=== PATIENT | female | born 1985 | race Caucasian/White ===

== ENCOUNTER 2017-11-28 08:49 | Day surgery (SDC) | payer OTHER ==
[2017-11-28] MEDS ORDERED: LIDOCAINE 1% (MDV) 20 ML INJ (11:05)
[2017-11-28] MEDS ORDERED: HEPARIN 1000 UNITS/NS (A-LINE) 1,000 ML (11:05)
[2017-11-28] MEDS ORDERED: MIDAZOLAM 1 MG/ML 2 ML INJ (11:05)
[2017-11-28] MEDS ORDERED: IODIXANOL LOCM 50 ML BTL (11:06)
[2017-11-28] MEDS ORDERED: FENTAnyl 50 MCG/ML VIAL (11:06)
[2017-11-28] MEDS ORDERED: IOHEXOL 350MG/ML 50 ML BTL (11:49)
[2017-11-28] MEDS ORDERED: ACETAMINOPHEN 325 MG TAB PO (13:00)
[2017-11-28 13:47] LABS: ALANINE AMINOTRANSFERASE 21 IU/L (13-69); ALBUMIN 4.9 g/dl (3.3-4.9); ALBUMIN/GLOBULIN RATIO 1.48; ALKALINE PHOSPHATASE 136 IU/L (42-121); ANION GAP 24 (8-16); ASPARTATE AMINO TRANSFERASE 19 IU/L (15-46); BILIRUBIN,INDIRECT 0.3 mg/dl (0-1.1); BILIRUBIN,TOTAL 0.3 mg/dl (0.2-1.3); CARBON DIOXIDE 26 mmol/L (21-31); CHLORIDE 96 mmol/L (97-110); GLUCOSE 102 mg/dl (70-220); SODIUM 139 mmol/L (135-144); TOTAL PROTEIN 8.2 g/dl (6.1-8.1)
[2017-11-28 13:49] LABS: BLOOD UREA NITROGEN 57 mg/dl (7-20); CALCIUM 9.6 mg/dl (8.4-10.2); CREATININE 10.42 mg/dl (0.44-1.00); POTASSIUM 7.1 mmol/L (3.5-5.1)
== END 2017-12-01 17:12 | disposition home or self-care (01) ==
LOC: SDS 12-01 17:12
DX: N18.6 End stage renal disease (principal); T82.898A Other specified complication of vascular prosthetic devices, implants and grafts, initial encounter; I87.1 Compression of vein; Y83.2 Surgical operation with anastomosis, bypass or graft as the cause of abnormal reaction of the patient, or of later complication, without mention of misadventure at the time of the procedure
CPT/HCPCS: 37248; 76937; 80053; 82962; 84703

== ENCOUNTER 2017-11-28 14:25 | Emergency (ER) | payer OTHER ==
[2017-11-28 16:21] LABS: ANION GAP 25 (8-16); BLOOD UREA NITROGEN 60 mg/dl (7-20); CALCIUM 9.1 mg/dl (8.4-10.2); CARBON DIOXIDE 24 mmol/L (21-31); CHLORIDE 96 mmol/L (97-110); GLUCOSE 155 mg/dl (70-220); POTASSIUM 5.2 mmol/L (3.5-5.1); SODIUM 140 mmol/L (135-144)
[2017-11-28 16:35] LABS: CREATININE 10.54 mg/dl (0.44-1.00)
== END 2017-11-28 18:26 | disposition home or self-care (01) ==
LOC: E/R 14:25
DX: E87.5 Hyperkalemia (principal); N18.6 End stage renal disease; E11.9 Type 2 diabetes mellitus without complications; Z99.2 Dependence on renal dialysis; Z79.4 Long term (current) use of insulin
CPT/HCPCS: 80048; 99283

== ENCOUNTER 2018-05-29 06:54 | Day surgery (SDC) | payer OTHER ==
[2018-05-29 08:21] LABS: POTASSIUM 4.5 mmol/L (3.5-5.1)
[2018-05-29] MEDS: DEXTROSE 50% 50 ML SYRINGE IV (09:33)
[2018-05-29] MEDS ORDERED: MIDAZOLAM 1 MG/ML 2 ML INJ (10:00)
[2018-05-29] MEDS ORDERED: FENTAnyl 50 MCG/ML VIAL (10:01)
[2018-05-29] MEDS ORDERED: LIDOCAINE 1% (MDV) 20 ML INJ (10:38)
[2018-05-29] MEDS ORDERED: IODIXANOL LOCM 50 ML BTL (10:38)
[2018-05-29] MEDS ORDERED: HEPARIN 1000 UNITS/NS (A-LINE) 1,000 ML (10:38)
[2018-05-29] MEDS ORDERED: ACETAMINOPHEN 325 MG TAB PO (11:00)
== END 2018-05-29 12:47 | disposition home or self-care (01) ==
LOC: SDS 06:54
DX: I12.0 Hypertensive chronic kidney disease with stage 5 chronic kidney disease or end stage renal disease (principal); N18.6 End stage renal disease; E11.9 Type 2 diabetes mellitus without complications
CPT/HCPCS: 36901; 36907; 82962; 84132; 84703

== ENCOUNTER 2018-08-09 11:02 | Inpatient (IN) | payer OTHER ==
[2018-08-09 12:23] LABS: ADD MAN DIFF? NO
[2018-08-09 12:27] LABS: BASOPHILS % 0.4 % (0.0-2.0); EOSINOPHILS # 0.1 10^3/ul (0.0-0.5); EOSINOPHILS % 1.4 % (0.0-7.0); HEMATOCRIT 34.6 % (37.0-47.0); LYMPHOCYTES # 0.8 10^3/ul (0.8-2.9); LYMPHOCYTES % 13.7 % (15.0-51.0); MEAN CORPUSCULAR HEMOGLOBIN 32.3 pg (29.0-33.0); MEAN CORPUSCULAR HGB CONC 31.8 g/dl (32.0-37.0); MEAN CORPUSCULAR VOLUME 101.5 fl (82.0-101.0); MEAN PLATELET VOLUME 11.6 fl (7.4-10.4); MONOCYTE # 0.4 10^3/ul (0.3-0.9); MONOCYTES % 6.7 % (0.0-11.0); NEUTROPHIL # 4.4 10^3/ul (1.6-7.5); NEUTROPHILS % 77.4 % (39.0-77.0); PLATELET COUNT 165 10^3/UL (140-415); RED BLOOD COUNT 3.41 10^6/ul (4.20-5.40)
[2018-08-09 12:27] LABS: WHITE BLOOD COUNT 5.7 10^3/ul (4.8-10.8)
[2018-08-09 12:44] LABS: ALANINE AMINOTRANSFERASE 8 IU/L (13-69); ALBUMIN 4.5 g/dl (3.3-4.9); ALKALINE PHOSPHATASE 105 IU/L (42-121); ANION GAP 18 (5-13); ASPARTATE AMINO TRANSFERASE 17 IU/L (15-46); BILIRUBIN,INDIRECT 0.2 mg/dl (0-1.1); BILIRUBIN,TOTAL 0.2 mg/dl (0.2-1.3); BLOOD UREA NITROGEN 44 mg/dl (7-20); CARBON DIOXIDE 24 mmol/L (21-31); CHLORIDE 100 mmol/L (97-110); CREATININE 9.23 mg/dl (0.44-1.00); Estimated GFR 5 mL/min (>60); GLUCOSE 213 mg/dl (70-220); LIPASE 146 U/L (23-300); POTASSIUM 4.9 mmol/L (3.5-5.1); SODIUM 142 mmol/L (135-144); TOTAL PROTEIN 7.7 g/dl (6.1-8.1)
[2018-08-09 12:45] LABS: INR 0.97
[2018-08-09] MEDS: hydrALAzine 20 MG INJ IV (13:02)
[2018-08-09] MEDS: LIDOCAINE 2% (MDV) 20 ML INJ INJ (13:30)
[2018-08-09] MEDS ORDERED: NITROGLYCERIN AEROSOL (4.9 GM) (14:22)
[2018-08-09] MEDS ORDERED: LIDOCAINE 2% (MDV) 20 ML INJ ×2 (14:22→15:16)
[2018-08-09] MEDS ORDERED: hydrALAzine 20 MG INJ (14:28)
[2018-08-09] MEDS ORDERED: HEPARIN 1000 UNITS/ML 10 ML INJ (15:20)
[2018-08-09 17:15] LABS: ADD MAN DIFF? NO
[2018-08-09 17:17] LABS: WHITE BLOOD COUNT 6.6 10^3/ul (4.8-10.8)
[2018-08-09 17:17] LABS: BASOPHILS % 0.3 % (0.0-2.0); EOSINOPHILS # 0.1 10^3/ul (0.0-0.5); EOSINOPHILS % 1.4 % (0.0-7.0); HEMATOCRIT 28.1 % (37.0-47.0); HEMOGLOBIN 9.1 g/dl (12.0-16.0); LYMPHOCYTES # 1.1 10^3/ul (0.8-2.9); LYMPHOCYTES % 17.1 % (15.0-51.0); MEAN CORPUSCULAR HEMOGLOBIN 32.7 pg (29.0-33.0); MEAN CORPUSCULAR HGB CONC 32.4 g/dl (32.0-37.0); MEAN CORPUSCULAR VOLUME 101.1 fl (82.0-101.0); MEAN PLATELET VOLUME 11.8 fl (7.4-10.4); MONOCYTE # 0.5 10^3/ul (0.3-0.9); MONOCYTES % 7.1 % (0.0-11.0); NEUTROPHIL # 4.9 10^3/ul (1.6-7.5); NEUTROPHILS % 73.9 % (39.0-77.0); PLATELET COUNT 166 10^3/UL (140-415); RED BLOOD COUNT 2.78 10^6/ul (4.20-5.40); RED CELL DISTRIBUTION WIDTH 13.2 % (11.5-14.5)
[2018-08-09] MEDS ORDERED: LORAZEPAM 2 MG INJ IV (17:30)
[2018-08-09] MEDS ORDERED: ACETAMINOPHEN 325 MG TAB PO (17:30)
[2018-08-09 17:34] LABS: ANION GAP 15 (5-13); BLOOD UREA NITROGEN 45 mg/dl (7-20); CALCIUM 9.6 mg/dl (8.4-10.2); CARBON DIOXIDE 23 mmol/L (21-31); CHLORIDE 102 mmol/L (97-110); CREATININE 9.28 mg/dl (0.44-1.00); Estimated GFR 5 mL/min (>60); GLUCOSE 129 mg/dl (70-220); POTASSIUM 4.6 mmol/L (3.5-5.1); SODIUM 140 mmol/L (135-144)
[2018-08-09 17:37] LABS: INR 1.15; PROTIME 14.9 Sec (11.9-14.9); PT RATIO 1.2
[2018-08-09] MEDS: ONDANSETRON 4 MG INJ IV (17:38)
[2018-08-09] MEDS ORDERED: DEXTROSE 50% 50 ML SYRINGE IV ×2 (18:30)
[2018-08-09] MEDS: INSULIN ASPART [NOVOLOG] 3 ML PEN SC ×2 (18:30→21:27)
[2018-08-09] MEDS ORDERED: GLUCOSE GEL 15 GRAM TUBE PO ×2 (18:30)
[2018-08-09] MEDS ORDERED: GLUCAGON 1 MG INJ IM (18:30)
[2018-08-09] MEDS ORDERED: GLUCOSE GEL 15 GRAM TUBE BUCCAL (18:30)
[2018-08-09 19:48] LABS: HEMOGLOBIN A1C 7.1 % (0-5.9)
[2018-08-09 19:51] LABS: PARTIAL THROMBOPLASTIN TIME 40.5 Sec (23.0-35.0)
[2018-08-09] MEDS ORDERED: INSULIN GLARGINE [LANTus] (100 UNITS/ML) SYG SC ×2 (20:00→21:00)
[2018-08-09] MEDS ORDERED: INSULIN GLARGINE [LANtus] 3 ML PEN SC (21:00)
[2018-08-09] MEDS ORDERED: HEPARIN 5,000 UNIT/0.5 ML VIAL (21:06)
[2018-08-09] MEDS: INSULIN GLARGINE [LANTus] (100 UNITS/ML) SYG SC (21:28)
[2018-08-09] MEDS: HEPARIN 5,000 UNIT/1 ML VIAL SC (21:29)
[2018-08-09] MEDS: HYDROCODONE/APAP (5/325) TAB PO (21:38)
[2018-08-10] MEDS: ACCU-CHEK XX (02:03)
[2018-08-10 05:34] LABS: ADD MAN DIFF? NO
[2018-08-10] MEDS: PANTOPRAZOLE (EC) 40 MG TAB PO ×2 (05:47)
[2018-08-10 05:48] LABS: BASOPHILS % 0.6 % (0.0-2.0); EOSINOPHILS # 0.2 10^3/ul (0.0-0.5); EOSINOPHILS % 3.3 % (0.0-7.0); HEMATOCRIT 25.7 % (37.0-47.0); HEMOGLOBIN 8.4 g/dl (12.0-16.0); LYMPHOCYTES # 1.3 10^3/ul (0.8-2.9); LYMPHOCYTES % 27.1 % (15.0-51.0); MEAN CORPUSCULAR HEMOGLOBIN 32.6 pg (29.0-33.0); MEAN CORPUSCULAR HGB CONC 32.7 g/dl (32.0-37.0); MEAN CORPUSCULAR VOLUME 99.6 fl (82.0-101.0); MONOCYTE # 0.4 10^3/ul (0.3-0.9); MONOCYTES % 7.9 % (0.0-11.0); NEUTROPHIL # 2.9 10^3/ul (1.6-7.5); NEUTROPHILS % 60.9 % (39.0-77.0); PLATELET COUNT 141 10^3/UL (140-415); RED BLOOD COUNT 2.58 10^6/ul (4.20-5.40); RED CELL DISTRIBUTION WIDTH 13.3 % (11.5-14.5)
[2018-08-10 05:48] LABS: WHITE BLOOD COUNT 4.8 10^3/ul (4.8-10.8)
[2018-08-10 06:24] LABS: ANION GAP 15 (5-13); BLOOD UREA NITROGEN 69 mg/dl (7-20); CALCIUM 9.7 mg/dl (8.4-10.2); CARBON DIOXIDE 25 mmol/L (21-31); CHLORIDE 99 mmol/L (97-110); CREATININE 12.26 mg/dl (0.44-1.00); Estimated GFR 4 mL/min (>60); GLUCOSE 102 mg/dl (70-220); POTASSIUM 4.6 mmol/L (3.5-5.1); SODIUM 139 mmol/L (135-144)
[2018-08-10] MEDS: HEPARIN 5,000 UNIT/1 ML VIAL SC ×2 (07:26→20:35)
[2018-08-10] MEDS: INSULIN ASPART [NOVOLOG] 3 ML PEN SC ×4 (08:00→20:35)
[2018-08-10] MEDS: SEVELAMER CARBONATE 800 MG TABLET PO ×3 (08:00→18:00)
[2018-08-10 08:21] LABS: HEPATITIS B SURFACE ANTIGEN NEGATIVE (NEGATIVE)
[2018-08-10] MEDS: NIFEdipine (XL) 90 MG TAB PO (08:22)
[2018-08-10] MEDS: METOPROLOL (XL) 50 MG TAB PO (08:23)
[2018-08-10 08:39] LABS: HEPATITIS B SURFACE ANTIBODY POSITIVE (NEGATIVE)
[2018-08-10] MEDS: ALTEPLASE (CATHFLO) 2 MG INJ CATHETER (11:03)
[2018-08-10] MEDS ORDERED: HEPARIN 1000 UNITS/NS (A-LINE) 1,000 ML (14:34)
[2018-08-10] MEDS ORDERED: HEPARIN 1000 UNITS/ML 10 ML INJ (14:34)
[2018-08-10] MEDS ORDERED: MIDAZOLAM 1 MG/ML 2 ML INJ (14:34)
[2018-08-10] MEDS ORDERED: FENTAnyl 50 MCG/ML VIAL (14:34)
[2018-08-10] MEDS: HYDROCODONE/APAP (5/325) TAB PO (19:45)
[2018-08-10] MEDS ORDERED: HEPARIN 5,000 UNIT/0.5 ML VIAL (20:22)
[2018-08-10] MEDS: morphine 2 MG INJ IV (20:24)
[2018-08-10] MEDS: INSULIN GLARGINE [LANTus] (100 UNITS/ML) SYG SC (20:35)
[2018-08-11] MEDS: HEPARIN 1000 UNITS/ML 10 ML INJ CATHETER (00:03)
[2018-08-11] MEDS: ACCU-CHEK XX (02:03)
[2018-08-11] MEDS: PANTOPRAZOLE (EC) 40 MG TAB PO (05:22)
[2018-08-11 06:08] LABS: ADD MAN DIFF? NO
[2018-08-11 06:18] LABS: WHITE BLOOD COUNT 3.8 10^3/ul (4.8-10.8)
[2018-08-11 06:18] LABS: BASOPHILS % 0.3 % (0.0-2.0); EOSINOPHILS # 0.1 10^3/ul (0.0-0.5); EOSINOPHILS % 3.4 % (0.0-7.0); HEMATOCRIT 25.7 % (37.0-47.0); HEMOGLOBIN 8.2 g/dl (12.0-16.0); LYMPHOCYTES # 0.8 10^3/ul (0.8-2.9); LYMPHOCYTES % 21.9 % (15.0-51.0); MEAN CORPUSCULAR HEMOGLOBIN 32.5 pg (29.0-33.0); MEAN CORPUSCULAR HGB CONC 31.9 g/dl (32.0-37.0); MEAN PLATELET VOLUME 12.3 fl (7.4-10.4); MONOCYTE # 0.4 10^3/ul (0.3-0.9); MONOCYTES % 9.2 % (0.0-11.0); NEUTROPHIL # 2.5 10^3/ul (1.6-7.5); NEUTROPHILS % 64.9 % (39.0-77.0); PLATELET COUNT 131 10^3/UL (140-415); RED BLOOD COUNT 2.52 10^6/ul (4.20-5.40); RED CELL DISTRIBUTION WIDTH 13.2 % (11.5-14.5)
[2018-08-11 06:55] LABS: ANION GAP 11 (5-13); BLOOD UREA NITROGEN 35 mg/dl (7-20); CALCIUM 9.2 mg/dl (8.4-10.2); CARBON DIOXIDE 26 mmol/L (21-31); CHLORIDE 101 mmol/L (97-110); CREATININE 7.89 mg/dl (0.44-1.00); Estimated GFR 6 mL/min (>60); GLUCOSE 271 mg/dl (70-220); POTASSIUM 5.5 mmol/L (3.5-5.1); SODIUM 138 mmol/L (135-144)
[2018-08-11] MEDS: INSULIN ASPART [NOVOLOG] 3 ML PEN SC ×4 (07:32→20:12)
[2018-08-11] MEDS: EPOETIN 4000 UNITS/1 ML INJ (ESRD) SC (08:07)
[2018-08-11] MEDS: SEVELAMER CARBONATE 800 MG TABLET PO ×4 (08:10→17:24)
[2018-08-11] MEDS: METOPROLOL (XL) 50 MG TAB PO (08:10)
[2018-08-11] MEDS: APIXABAN 5 MG TABLET PO ×2 (08:11→20:06)
[2018-08-11] MEDS: NIFEdipine (XL) 90 MG TAB PO (08:11)
[2018-08-11] MEDS: NA POLYST SULFON 15 GM/60 ML BTL PO (13:39)
[2018-08-11] MEDS: INSULIN GLARGINE [LANTus] (100 UNITS/ML) SYG SC (20:11)
[2018-08-12] MEDS: ACCU-CHEK XX (01:56)
[2018-08-12] MEDS: PANTOPRAZOLE (EC) 40 MG TAB PO (05:45)
[2018-08-12] MEDS: INSULIN ASPART [NOVOLOG] 3 ML PEN SC ×3 (07:29→17:21)
[2018-08-12] MEDS: METOPROLOL (XL) 50 MG TAB PO (08:16)
[2018-08-12] MEDS: SEVELAMER CARBONATE 800 MG TABLET PO ×3 (08:16→17:17)
[2018-08-12] MEDS: APIXABAN 5 MG TABLET PO (08:16)
[2018-08-12] MEDS: NIFEdipine (XL) 90 MG TAB PO (08:17)
== END 2018-08-12 17:57 | disposition home or self-care (01) | DRG 314 ==
LOC: 6WM 08-12 08:40 → E/R 11:02 → REC 12:41 → 6WM 15:50
PROC: 06HN33Z Insertion of Infusion Device into Left Femoral Vein, Percutaneous Approach (ICD-10-PCS; principal; 2018-08-09 13:00)
PROC: 05HM33Z Insertion of Infusion Device into Right Internal Jugular Vein, Percutaneous Approach (ICD-10-PCS; 2018-08-09 13:00)
PROC: 5A1D70Z Performance of Urinary Filtration, Intermittent, Less than 6 Hours Per Day (ICD-10-PCS; 2018-08-09 13:50)
PROC: 0JH60XZ Insertion of Tunneled Vascular Access Device into Chest Subcutaneous Tissue and Fascia, Open Approach (ICD-10-PCS; 2018-08-09 13:50)
PROC: 05HN33Z Insertion of Infusion Device into Left Internal Jugular Vein, Percutaneous Approach (ICD-10-PCS; 2018-08-09 13:50)
PROC: 05PYX3Z Removal of Infusion Device from Upper Vein, External Approach (ICD-10-PCS; 2018-08-09 13:50)
DX: T82.838A Hemorrhage due to vascular prosthetic devices, implants and grafts, initial encounter (principal); N18.6 End stage renal disease; I16.1 Hypertensive emergency; I12.0 Hypertensive chronic kidney disease with stage 5 chronic kidney disease or end stage renal disease; T82.868A Thrombosis due to vascular prosthetic devices, implants and grafts, initial encounter; T82.858A Stenosis of other vascular prosthetic devices, implants and grafts, initial encounter; Z99.2 Dependence on renal dialysis; E11.9 Type 2 diabetes mellitus without complications; K21.9 Gastro-esophageal reflux disease without esophagitis; Z91.041 Radiographic dye allergy status; E87.5 Hyperkalemia
CPT/HCPCS: 36901; 80048; 80053; 82962; 83036; 83690; 85025; 85610; 85730; 86706; 86850; 86870; 86900; 86901; 87340; 90935; 93971; 99291-25

== ENCOUNTER 2018-11-09 10:00 | Day surgery (SDC) | payer BC, OTHER ==
[2018-11-09 11:49] LABS: ADD MAN DIFF? NO
[2018-11-09 11:56] LABS: BASOPHIL # 0.1 10^3/ul (0.0-0.1); BASOPHILS % 0.8 % (0.0-2.0); EOSINOPHILS # 0.3 10^3/ul (0.0-0.5); HEMATOCRIT 35.9 % (37.0-47.0); HEMOGLOBIN 11.7 g/dl (12.0-16.0); LYMPHOCYTES # 1.3 10^3/ul (0.8-2.9); LYMPHOCYTES % 19.3 % (15.0-51.0); MEAN CORPUSCULAR HEMOGLOBIN 28.8 pg (29.0-33.0); MEAN CORPUSCULAR HGB CONC 32.6 g/dl (32.0-37.0); MEAN CORPUSCULAR VOLUME 88.4 fl (82.0-101.0); MEAN PLATELET VOLUME 12.1 fl (7.4-10.4); MONOCYTE # 0.5 10^3/ul (0.3-0.9); MONOCYTES % 7.2 % (0.0-11.0); NEUTROPHIL # 4.5 10^3/ul (1.6-7.5); NEUTROPHILS % 67.5 % (39.0-77.0); PLATELET COUNT 245 10^3/UL (140-415); RED BLOOD COUNT 4.06 10^6/ul (4.20-5.40); RED CELL DISTRIBUTION WIDTH 14.6 % (11.5-14.5)
[2018-11-09 11:56] LABS: WHITE BLOOD COUNT 6.6 10^3/ul (4.8-10.8)
[2018-11-09 12:10] LABS: INR 0.85; PROTIME 11.7 Sec (11.9-14.9); PT RATIO 0.9
[2018-11-09] MEDS ORDERED: BUPIVACAINE 0.5% (SDV) 30 ML INJ (12:10)
[2018-11-09] MEDS ORDERED: THROMBIN (BOVINE) 5,000 UNIT VIAL TP (12:10)
[2018-11-09] MEDS ORDERED: GELATIN SIZE 100 SPONGE (12:10)
[2018-11-09] MEDS ORDERED: LIDOCAINE 1% (MPF) 30 ML INJ (12:10)
[2018-11-09 12:11] LABS: PARTIAL THROMBOPLASTIN TIME 31.5 Sec (23.0-35.0)
[2018-11-09] MEDS ORDERED: HEPARIN 1000 UNITS/ML 10 ML INJ (12:11)
[2018-11-09 12:14] LABS: ALBUMIN 4.9 g/dl (3.3-4.9); ALKALINE PHOSPHATASE 86 IU/L (42-121); ASPARTATE AMINO TRANSFERASE 20 IU/L (15-46); CHLORIDE 100 mmol/L (97-110); SODIUM 138 mmol/L (135-144)
[2018-11-09 12:19] LABS: ALANINE AMINOTRANSFERASE 7 IU/L (13-69); ANION GAP 22 (5-13); BLOOD UREA NITROGEN 89 mg/dl (7-20); CALCIUM 10.6 mg/dl (8.4-10.2); CARBON DIOXIDE 16 mmol/L (21-31); Estimated GFR 3 mL/min (>60); GLUCOSE 69 mg/dl (70-220); POTASSIUM 7.4 mmol/L (3.5-5.1); TOTAL PROTEIN 8.4 g/dl (6.1-8.1)
[2018-11-09 12:20] LABS: CREATININE 13.65 mg/dl (0.44-1.00)
== END 2018-11-09 12:55 | disposition other institution (70) ==
LOC: SDS 10:00
DX: I12.0 Hypertensive chronic kidney disease with stage 5 chronic kidney disease or end stage renal disease (principal); N18.6 End stage renal disease; Z99.2 Dependence on renal dialysis; Z53.8 Procedure and treatment not carried out for other reasons; E11.9 Type 2 diabetes mellitus without complications
CPT/HCPCS: 71045; 80053; 82962; 84702; 85025; 85610; 85730; 93005

== ENCOUNTER 2018-11-09 13:07 | Inpatient (IN) | payer BC ==
[2018-11-09 13:43] LABS: ADD MAN DIFF? NO
[2018-11-09 13:49] LABS: WHITE BLOOD COUNT 6.4 10^3/ul (4.8-10.8)
[2018-11-09 13:49] LABS: BASOPHIL # 0.1 10^3/ul (0.0-0.1); BASOPHILS % 0.8 % (0.0-2.0); EOSINOPHILS # 0.3 10^3/ul (0.0-0.5); EOSINOPHILS % 4.7 % (0.0-7.0); HEMATOCRIT 34.7 % (37.0-47.0); HEMOGLOBIN 11.1 g/dl (12.0-16.0); LYMPHOCYTES # 1.5 10^3/ul (0.8-2.9); LYMPHOCYTES % 23.2 % (15.0-51.0); MEAN CORPUSCULAR HEMOGLOBIN 28.8 pg (29.0-33.0); MEAN CORPUSCULAR VOLUME 90.1 fl (82.0-101.0); MEAN PLATELET VOLUME 12.1 fl (7.4-10.4); MONOCYTE # 0.6 10^3/ul (0.3-0.9); NEUTROPHILS % 61.8 % (39.0-77.0); PLATELET COUNT 224 10^3/UL (140-415); RED BLOOD COUNT 3.85 10^6/ul (4.20-5.40); RED CELL DISTRIBUTION WIDTH 14.6 % (11.5-14.5)
[2018-11-09] MEDS: SODIUM POLYSTYRENE 15 GM KIT (POWDER + SORBITOL) PO (14:00)
[2018-11-09] MEDS: DEXTROSE 50% 50 ML SYRINGE IV (14:00)
[2018-11-09] MEDS: NA BICARBONATE 8.4% 50 ML SYG IV (14:01)
[2018-11-09] MEDS: ALBUTEROL 0.5% (NEB) 2.5 MG/0.5 ML AMP INH (14:05)
[2018-11-09 14:06] LABS: ANION GAP 21 (5-13); BLOOD UREA NITROGEN 92 mg/dl (7-20); CALCIUM 10.2 mg/dl (8.4-10.2); CARBON DIOXIDE 14 mmol/L (21-31); CHLORIDE 102 mmol/L (97-110); GLUCOSE 66 mg/dl (70-220); SODIUM 137 mmol/L (135-144)
[2018-11-09 14:10] LABS: PROTIME 12.3 Sec (11.9-14.9)
[2018-11-09 14:11] LABS: PARTIAL THROMBOPLASTIN TIME 30.7 Sec (23.0-35.0)
[2018-11-09] MEDS: INSULIN REGULAR, HUMAN 100 UNIT/1 ML 3ML VIAL IVP (14:11)
[2018-11-09 14:12] LABS: Estimated GFR 3 mL/min (>60)
[2018-11-09 14:13] LABS: CREATININE 13.35 mg/dl (0.44-1.00)
[2018-11-09 14:17] LABS: POTASSIUM 7.2 mmol/L (3.5-5.1); TROPONIN-I 0.031 ng/ml (0.000-0.120)
[2018-11-09] MEDS ORDERED: ACETAMINOPHEN 325 MG TAB PO (14:30)
[2018-11-09] MEDS ORDERED: ONDANSETRON 4 MG INJ IV (14:30)
[2018-11-09] MEDS ORDERED: GLUCOSE GEL 15 GRAM TUBE PO ×2 (20:30)
[2018-11-09] MEDS ORDERED: ACETAMINOPHEN 500 MG TAB PO (20:30)
[2018-11-09] MEDS ORDERED: GLUCOSE GEL 15 GRAM TUBE BUCCAL (20:30)
[2018-11-09] MEDS ORDERED: GLUCAGON 1 MG INJ IM (20:30)
[2018-11-09] MEDS ORDERED: DEXTROSE 50% 50 ML SYRINGE IV ×2 (20:30)
[2018-11-09] MEDS ORDERED: INSULIN GLARGINE [LANtus] 3 ML PEN SC (21:30)
[2018-11-09] MEDS: METOPROLOL 50 MG TAB PO (22:02)
[2018-11-09] MEDS: INSULIN GLARGINE [LANTus] (100 UNITS/ML) SYG SC (22:48)
[2018-11-09] MEDS: INSULIN ASPART [NOVOLOG] 3 ML PEN SC (22:48)
[2018-11-10 02:29] LABS: HEPATITIS B SURFACE ANTIGEN NEGATIVE (NEGATIVE)
[2018-11-10] MEDS: HEPARIN 1000 UNITS/ML 10 ML INJ CATHETER (03:12)
[2018-11-10] MEDS: INSULIN ASPART [NOVOLOG] 3 ML PEN SC ×4 (07:54→22:19)
[2018-11-10] MEDS: METOPROLOL 50 MG TAB PO (08:34)
[2018-11-10] MEDS: SEVELAMER CARBONATE 800 MG TABLET PO ×3 (08:35→18:12)
[2018-11-10] MEDS: NIFEdipine (XL) 90 MG TAB PO (08:35)
[2018-11-10 08:46] LABS: ANION GAP 15 (5-13); BLOOD UREA NITROGEN 39 mg/dl (7-20); CALCIUM 8.8 mg/dl (8.4-10.2); CARBON DIOXIDE 28 mmol/L (21-31); CHLORIDE 95 mmol/L (97-110); CREATININE 7.92 mg/dl (0.44-1.00); Estimated GFR 6 mL/min (>60); GLUCOSE 210 mg/dl (70-220); SODIUM 138 mmol/L (135-144)
[2018-11-10 08:53] LABS: POTASSIUM 4.4 mmol/L (3.5-5.1)
[2018-11-10] MEDS: INSULIN GLARGINE [LANTus] (100 UNITS/ML) SYG SC (22:19)
[2018-11-11] MEDS: INSULIN ASPART [NOVOLOG] 3 ML PEN SC ×2 (07:55→11:59)
[2018-11-11 08:10] LABS: ADD MAN DIFF? NO
[2018-11-11 08:22] LABS: WHITE BLOOD COUNT 4.4 10^3/ul (4.8-10.8)
[2018-11-11 08:22] LABS: BASOPHILS % 0.7 % (0.0-2.0); EOSINOPHILS # 0.3 10^3/ul (0.0-0.5); EOSINOPHILS % 6.7 % (0.0-7.0); HEMATOCRIT 31.8 % (37.0-47.0); HEMOGLOBIN 10.3 g/dl (12.0-16.0); LYMPHOCYTES # 1.4 10^3/ul (0.8-2.9); LYMPHOCYTES % 31.4 % (15.0-51.0); MEAN CORPUSCULAR HEMOGLOBIN 29.1 pg (29.0-33.0); MEAN CORPUSCULAR HGB CONC 32.4 g/dl (32.0-37.0); MEAN CORPUSCULAR VOLUME 89.8 fl (82.0-101.0); MEAN PLATELET VOLUME 11.8 fl (7.4-10.4); MONOCYTE # 0.4 10^3/ul (0.3-0.9); MONOCYTES % 9.9 % (0.0-11.0); NEUTROPHIL # 2.2 10^3/ul (1.6-7.5); NEUTROPHILS % 51.1 % (39.0-77.0); PLATELET COUNT 202 10^3/UL (140-415); RED BLOOD COUNT 3.54 10^6/ul (4.20-5.40); RED CELL DISTRIBUTION WIDTH 14.2 % (11.5-14.5)
[2018-11-11 08:32] LABS: ANION GAP 18 (5-13); BLOOD UREA NITROGEN 66 mg/dl (7-20); CARBON DIOXIDE 26 mmol/L (21-31); CHLORIDE 94 mmol/L (97-110); Estimated GFR 4 mL/min (>60); GLUCOSE 109 mg/dl (70-220); MAGNESIUM 2.5 mg/dl (1.7-2.5); PHOSPHORUS 9.8 mg/dl (2.5-4.9); POTASSIUM 4.5 mmol/L (3.5-5.1); SODIUM 138 mmol/L (135-144)
[2018-11-11] MEDS: NIFEdipine (XL) 90 MG TAB PO (08:38)
[2018-11-11] MEDS: SEVELAMER CARBONATE 800 MG TABLET PO ×2 (08:38→12:44)
[2018-11-11] MEDS: METOPROLOL 50 MG TAB PO (08:39)
[2018-11-11] MEDS: LANTHANUM 500 MG CHEW PO (12:44)
== END 2018-11-11 13:35 | disposition home or self-care (01) | DRG 640 ==
LOC: E/R 13:07 → TEL 14:18
PROC: 5A1D70Z Performance of Urinary Filtration, Intermittent, Less than 6 Hours Per Day (ICD-10-PCS; 2018-11-09)
PROC: 5A1D70Z Performance of Urinary Filtration, Intermittent, Less than 6 Hours Per Day (ICD-10-PCS; principal; 2018-11-11)
DX: E87.5 Hyperkalemia (principal); N18.6 End stage renal disease; I12.0 Hypertensive chronic kidney disease with stage 5 chronic kidney disease or end stage renal disease; E11.22 Type 2 diabetes mellitus with diabetic chronic kidney disease; E87.2 Acidosis; D63.1 Anemia in chronic kidney disease; Z99.2 Dependence on renal dialysis; Z79.4 Long term (current) use of insulin
CPT/HCPCS: 80048; 82962; 83735; 84100; 84484; 85025; 85610; 85730; 87340; 90935; 93005; 94664; 96374; 96375; 99291-25

== ENCOUNTER 2018-12-07 11:11 | Day surgery (SDC) | payer BC ==
[2018-12-07 13:43] LABS: POTASSIUM 5.6 mmol/L (3.5-5.1)
[2018-12-07] MEDS: DEXTROSE 50% 50 ML SYRINGE IV (14:58)
[2018-12-07] MEDS ORDERED: SOD CHLORIDE 0.9% 500 ML IV (15:30)
[2018-12-07] MEDS ORDERED: LIDOCAINE 1% (MDV) 20 ML INJ (16:48)
[2018-12-07] MEDS ORDERED: HEPARIN 1000 UNITS/NS (A-LINE) 1,000 ML (16:48)
[2018-12-07] MEDS ORDERED: HEPARIN 1000 UNITS/ML 10 ML INJ (16:48)
[2018-12-07] MEDS ORDERED: FENTAnyl 50 MCG/ML VIAL (16:48)
[2018-12-07] MEDS ORDERED: MIDAZOLAM 1 MG/ML 2 ML INJ (16:49)
[2018-12-07] MEDS ORDERED: ONDANSETRON 4 MG INJ IV (17:30)
[2018-12-07] MEDS: ACETAMINOPHEN 325 MG TAB PO (18:24)
== END 2018-12-07 19:44 | disposition home or self-care (01) ==
LOC: CCL 11:11 → SDS 11:11 → CCL 19:44
DX: T82.49XD Other complication of vascular dialysis catheter, subsequent encounter (principal); Y84.1 Kidney dialysis as the cause of abnormal reaction of the patient, or of later complication, without mention of misadventure at the time of the procedure; I12.0 Hypertensive chronic kidney disease with stage 5 chronic kidney disease or end stage renal disease; N18.6 End stage renal disease; E11.9 Type 2 diabetes mellitus without complications
CPT/HCPCS: 36585; 76937; 82962; 84132; 84703

== ENCOUNTER 2018-12-10 20:23 | Inpatient (IN) | payer BC ==
[2018-12-10 21:14] LABS: ADD MAN DIFF? NO
[2018-12-10 21:18] LABS: WHITE BLOOD COUNT 6.8 10^3/ul (4.8-10.8)
[2018-12-10 21:18] LABS: BASOPHILS % 0.4 % (0.0-2.0); EOSINOPHILS # 0.3 10^3/ul (0.0-0.5); EOSINOPHILS % 4.4 % (0.0-7.0); HEMOGLOBIN 10.8 g/dl (12.0-16.0); LYMPHOCYTES # 0.9 10^3/ul (0.8-2.9); LYMPHOCYTES % 13.1 % (15.0-51.0); MEAN CORPUSCULAR HEMOGLOBIN 29.8 pg (29.0-33.0); MEAN CORPUSCULAR HGB CONC 31.8 g/dl (32.0-37.0); MEAN CORPUSCULAR VOLUME 93.9 fl (82.0-101.0); MEAN PLATELET VOLUME 11.9 fl (7.4-10.4); MONOCYTE # 0.5 10^3/ul (0.3-0.9); MONOCYTES % 6.8 % (0.0-11.0); NEUTROPHIL # 5.1 10^3/ul (1.6-7.5); PLATELET COUNT 237 10^3/UL (140-415); RED BLOOD COUNT 3.62 10^6/ul (4.20-5.40); RED CELL DISTRIBUTION WIDTH 17.1 % (11.5-14.5)
[2018-12-10] MEDS: ONDANSETRON 4 MG INJ IV (21:18)
[2018-12-10 21:32] LABS: ALBUMIN 5.1 g/dl (3.3-4.9); ALBUMIN/GLOBULIN RATIO 1.41; ALKALINE PHOSPHATASE 101 IU/L (42-121); ANION GAP 17 (5-13); ASPARTATE AMINO TRANSFERASE 25 IU/L (15-46); BILIRUBIN,INDIRECT 0.1 mg/dl (0-1.1); BILIRUBIN,TOTAL 0.1 mg/dl (0.2-1.3); BLOOD UREA NITROGEN 28 mg/dl (7-20); CALCIUM 10.4 mg/dl (8.4-10.2); CARBON DIOXIDE 24 mmol/L (21-31); CHLORIDE 97 mmol/L (97-110); CREATININE 7.98 mg/dl (0.44-1.00); Estimated GFR 6 mL/min (>60); GLUCOSE 209 mg/dl (70-220); LIPASE 279 U/L (23-300); POTASSIUM 4.7 mmol/L (3.5-5.1); SODIUM 138 mmol/L (135-144); TOTAL PROTEIN 8.7 g/dl (6.1-8.1)
[2018-12-10 21:33] LABS: ALANINE AMINOTRANSFERASE < 6 IU/L (13-69)
[2018-12-10] MEDS: morphine 4 MG/ML VIAL IV (21:36)
[2018-12-10 21:44] LABS: TROPONIN-I 0.039 ng/ml (0.000-0.120)
[2018-12-11] MEDS: morphine 4 MG/ML VIAL IV (04:32)
[2018-12-11] MEDS: ONDANSETRON 4 MG INJ IV (04:32)
[2018-12-11] MEDS: morphine 2 MG INJ IV (10:25)
[2018-12-11] MEDS ORDERED: ONDANSETRON 4 MG INJ IV ×2 (10:30→11:00)
[2018-12-11] MEDS: hydrALAzine 20 MG INJ IV (11:06)
[2018-12-11] MEDS: DEXTROSE 5%-0.45% NACL 1,000 ML IV (11:23)
[2018-12-11] MEDS ORDERED: GLUCAGON 1 MG INJ IM (12:00)
[2018-12-11] MEDS ORDERED: DEXTROSE 50% 50 ML SYRINGE IV ×2 (12:00)
[2018-12-11] MEDS ORDERED: GLUCOSE GEL 15 GRAM TUBE BUCCAL (12:00)
[2018-12-11] MEDS ORDERED: GLUCOSE GEL 15 GRAM TUBE PO ×2 (12:00)
[2018-12-11] MEDS: HYDROmorphONE 1 MG/ML SYG IV ×2 (13:20→19:48)
[2018-12-11] MEDS: FAMOTIDINE 20 MG INJ IV (13:20)
[2018-12-11] MEDS: INSULIN ASPART [NOVOLOG] 3 ML PEN SC ×3 (13:32→17:10)
[2018-12-11] MEDS: PIPER-TAZO 2.25 GM (PMX) 50 ML IVPB ×2 (13:52→22:48)
[2018-12-11] MEDS: INSULIN GLARGINE [LANTus] (100 UNITS/ML) SYG SC (21:20)
[2018-12-11] MEDS: HEPARIN 5,000 UNIT/1 ML VIAL SC (21:20)
[2018-12-11] MEDS ORDERED: DIPHENHYDRAMINE 50 MG INJ IV (21:30)
[2018-12-12] MEDS: INSULIN ASPART [NOVOLOG] 3 ML PEN SC ×7 (00:29→21:00)
[2018-12-12] MEDS: ACCU-CHEK XX (01:37)
[2018-12-12] MEDS: DEXTROSE 5%-0.45% NACL 1,000 ML IV ×3 (01:48→20:17)
[2018-12-12] MEDS: METOCLOPRAMIDE 10 MG INJ IV ×5 (05:23→23:48)
[2018-12-12] MEDS: HYDROmorphONE 1 MG/ML SYG IV ×3 (05:26→18:14)
[2018-12-12] MEDS: PIPER-TAZO 2.25 GM (PMX) 50 ML IVPB (05:30)
[2018-12-12 09:21] LABS: ADD MAN DIFF? NO
[2018-12-12 09:30] LABS: BASOPHILS % 0.3 % (0.0-2.0); EOSINOPHILS # 0.3 10^3/ul (0.0-0.5); EOSINOPHILS % 2.8 % (0.0-7.0); HEMATOCRIT 30.7 % (37.0-47.0); HEMOGLOBIN 9.5 g/dl (12.0-16.0); LYMPHOCYTES # 0.7 10^3/ul (0.8-2.9); LYMPHOCYTES % 6.7 % (15.0-51.0); MEAN CORPUSCULAR HEMOGLOBIN 29.5 pg (29.0-33.0); MEAN CORPUSCULAR HGB CONC 30.9 g/dl (32.0-37.0); MEAN CORPUSCULAR VOLUME 95.3 fl (82.0-101.0); MEAN PLATELET VOLUME 11.8 fl (7.4-10.4); MONOCYTE # 0.6 10^3/ul (0.3-0.9); MONOCYTES % 6.4 % (0.0-11.0); NEUTROPHIL # 8.2 10^3/ul (1.6-7.5); NEUTROPHILS % 83.3 % (39.0-77.0); PLATELET COUNT 225 10^3/UL (140-415); RED BLOOD COUNT 3.22 10^6/ul (4.20-5.40); RED CELL DISTRIBUTION WIDTH 17.6 % (11.5-14.5)
[2018-12-12 09:30] LABS: WHITE BLOOD COUNT 9.8 10^3/ul (4.8-10.8)
[2018-12-12] MEDS: HEPARIN 5,000 UNIT/1 ML VIAL SC (09:36)
[2018-12-12 09:40] LABS: HEMOGLOBIN A1C 9.4 % (0-5.9)
[2018-12-12 09:44] LABS: ALANINE AMINOTRANSFERASE 12 IU/L (13-69); ALBUMIN/GLOBULIN RATIO 1.29; ALKALINE PHOSPHATASE 93 IU/L (42-121); ANION GAP 18 (5-13); ASPARTATE AMINO TRANSFERASE 22 IU/L (15-46); BILIRUBIN,INDIRECT 0.4 mg/dl (0-1.1); BILIRUBIN,TOTAL 0.4 mg/dl (0.2-1.3); BLOOD UREA NITROGEN 41 mg/dl (7-20); CARBON DIOXIDE 20 mmol/L (21-31); CHLORIDE 100 mmol/L (97-110); GLUCOSE 114 mg/dl (70-220); SODIUM 138 mmol/L (135-144); TOTAL PROTEIN 7.1 g/dl (6.1-8.1)
[2018-12-12 09:51] LABS: Estimated GFR 3 mL/min (>60)
[2018-12-12 12:36] LABS: HEPATITIS B SURFACE ANTIGEN NEGATIVE (NEGATIVE)
[2018-12-12] MEDS: HEPARIN 1000 UNITS/ML 10 ML INJ CATHETER (13:07)
[2018-12-12] MEDS: FAMOTIDINE 20 MG INJ IV (14:44)
[2018-12-12] MEDS: MUPIROCIN 2% 22 GM OINT TOP (20:06)
[2018-12-12] MEDS: INSULIN GLARGINE [LANTus] (100 UNITS/ML) SYG SC (20:12)
[2018-12-13] MEDS: HYDROmorphONE 1 MG/ML SYG IV ×6 (01:09→22:26)
[2018-12-13] MEDS: INSULIN ASPART [NOVOLOG] 3 ML PEN SC ×7 (01:16→20:46)
[2018-12-13] MEDS: ACCU-CHEK XX (01:19)
[2018-12-13] MEDS: METOCLOPRAMIDE 10 MG INJ IV ×3 (05:35→17:57)
[2018-12-13] MEDS ORDERED: PROPOFOL 200 MG INJ (07:00)
[2018-12-13] MEDS: MUPIROCIN 2% 22 GM OINT TOP ×2 (08:41→20:34)
[2018-12-13] MEDS: FAMOTIDINE 20 MG INJ IV (11:35)
[2018-12-13] MEDS ORDERED: PROPOFOL 20 ML (12:04)
[2018-12-13] MEDS ORDERED: LIDOCAINE 2% (SDV) 5 ML INJ (12:04)
[2018-12-13] MEDS ORDERED: FENTAnyl 50 MCG/ML VIAL (12:16)
[2018-12-13] MEDS ORDERED: EPHEDrine SULFATE 50 MG/5 ML SYG IV (12:30)
[2018-12-13] MEDS ORDERED: ONDANSETRON 4 MG INJ (12:42)
[2018-12-13] MEDS: ONDANSETRON 4 MG INJ IV (12:44)
[2018-12-13] MEDS: PANTOPRAZOLE 40 MG INJ IV (17:57)
[2018-12-13] MEDS: INSULIN GLARGINE [LANTus] (100 UNITS/ML) SYG SC (20:38)
[2018-12-14] MEDS: METOCLOPRAMIDE 10 MG INJ IV ×4 (00:13→20:53)
[2018-12-14] MEDS: ACCU-CHEK XX (02:00)
[2018-12-14] MEDS: HYDROmorphONE 1 MG/ML SYG IV ×4 (02:10→21:07)
[2018-12-14 05:30] LABS: ADD MAN DIFF? NO
[2018-12-14 05:45] LABS: BASOPHILS % 0.4 % (0.0-2.0); EOSINOPHILS # 0.3 10^3/ul (0.0-0.5); EOSINOPHILS % 4.7 % (0.0-7.0); HEMATOCRIT 29.6 % (37.0-47.0); HEMOGLOBIN 9.3 g/dl (12.0-16.0); LYMPHOCYTES # 0.8 10^3/ul (0.8-2.9); LYMPHOCYTES % 11.2 % (15.0-51.0); MEAN CORPUSCULAR HEMOGLOBIN 29.8 pg (29.0-33.0); MEAN CORPUSCULAR HGB CONC 31.4 g/dl (32.0-37.0); MEAN CORPUSCULAR VOLUME 94.9 fl (82.0-101.0); MONOCYTE # 0.7 10^3/ul (0.3-0.9); MONOCYTES % 9.8 % (0.0-11.0); NEUTROPHIL # 5.3 10^3/ul (1.6-7.5); NEUTROPHILS % 73.5 % (39.0-77.0); PLATELET COUNT 212 10^3/UL (140-415); RED BLOOD COUNT 3.12 10^6/ul (4.20-5.40); RED CELL DISTRIBUTION WIDTH 17.2 % (11.5-14.5)
[2018-12-14 05:45] LABS: WHITE BLOOD COUNT 7.2 10^3/ul (4.8-10.8)
[2018-12-14 05:51] LABS: ANION GAP 17 (5-13); BLOOD UREA NITROGEN 63 mg/dl (7-20); CALCIUM 10.1 mg/dl (8.4-10.2); CARBON DIOXIDE 19 mmol/L (21-31); CHLORIDE 97 mmol/L (97-110); GLUCOSE 163 mg/dl (70-220); POTASSIUM 5.4 mmol/L (3.5-5.1); SODIUM 133 mmol/L (135-144)
[2018-12-14 06:08] LABS: Estimated GFR 4 mL/min (>60)
[2018-12-14 06:11] LABS: CREATININE 11.96 mg/dl (0.44-1.00)
[2018-12-14] MEDS: PANTOPRAZOLE 40 MG INJ IV ×2 (06:15→17:43)
[2018-12-14] MEDS: DEXTROSE 5%-0.45% NACL 1,000 ML IV (06:16)
[2018-12-14] MEDS: INSULIN ASPART [NOVOLOG] 3 ML PEN SC ×7 (07:50→18:10)
[2018-12-14] MEDS: MUPIROCIN 2% 22 GM OINT TOP ×2 (13:33→20:53)
[2018-12-14] MEDS: EPOETIN ALFA-EPBX (ESRD) 10,000 UNIT/ML VIAL SC (17:54)
[2018-12-14] MEDS: METOPROLOL 50 MG TAB PO (17:57)
[2018-12-14] MEDS: INSULIN GLARGINE [LANTus] (100 UNITS/ML) SYG SC (21:03)
[2018-12-15] MEDS: HYDROmorphONE 1 MG/ML SYG IV ×4 (01:28→20:20)
[2018-12-15] MEDS: METOCLOPRAMIDE 10 MG INJ IV ×4 (01:28→17:39)
[2018-12-15] MEDS: ACCU-CHEK XX (02:00)
[2018-12-15] MEDS: PANTOPRAZOLE 40 MG INJ IV ×2 (06:31→17:38)
[2018-12-15] MEDS: INSULIN ASPART [NOVOLOG] 3 ML PEN SC ×7 (07:50→21:00)
[2018-12-15] MEDS: MULTIVIT/CA CARB/B CMPLX/FA TAB PO (09:21)
[2018-12-15] MEDS: MUPIROCIN 2% 22 GM OINT TOP ×2 (09:22→20:25)
[2018-12-15] MEDS: METOPROLOL 50 MG TAB PO (09:22)
[2018-12-15 11:10] LABS: GLUCOSE 184 mg/dl (70-220)
[2018-12-15] MEDS: SEVELAMER CARBONATE 800 MG TABLET PO ×2 (12:17→17:38)
[2018-12-15] MEDS ORDERED: INSULIN GLARGINE [LANTus] (100 UNITS/ML) SYG SC (20:00)
[2018-12-15] MEDS: INSULIN GLARGINE [LANTus] (100 UNITS/ML) SYG SC (21:47)
[2018-12-16] MEDS: METOCLOPRAMIDE 10 MG INJ IV ×5 (00:36→23:15)
[2018-12-16] MEDS: HYDROmorphONE 1 MG/ML SYG IV ×4 (00:36→20:32)
[2018-12-16] MEDS: ACCU-CHEK XX (02:00)
[2018-12-16] MEDS: PANTOPRAZOLE 40 MG INJ IV ×2 (06:32→17:49)
[2018-12-16] MEDS: SEVELAMER CARBONATE 800 MG TABLET PO ×4 (07:50→17:50)
[2018-12-16] MEDS: INSULIN ASPART [NOVOLOG] 3 ML PEN SC ×7 (07:50→21:00)
[2018-12-16] MEDS: BARIUM SULF 2% 450 ML BTL (BERRY SMOOTHIE) PO (08:53)
[2018-12-16] MEDS: MULTIVIT/CA CARB/B CMPLX/FA TAB PO ×2 (09:00→11:52)
[2018-12-16] MEDS: METOPROLOL 50 MG TAB PO ×2 (09:00→11:53)
[2018-12-16] MEDS: MUPIROCIN 2% 22 GM OINT TOP ×2 (11:53→21:23)
[2018-12-16] MEDS: INSULIN GLARGINE [LANTus] (100 UNITS/ML) SYG SC (21:25)
[2018-12-17] MEDS: ACCU-CHEK XX (02:00)
[2018-12-17] MEDS: METOCLOPRAMIDE 10 MG INJ IV ×3 (05:46→17:21)
[2018-12-17] MEDS: PANTOPRAZOLE 40 MG INJ IV ×2 (05:46→17:21)
[2018-12-17] MEDS: HYDROmorphONE 1 MG/ML SYG IV (05:55)
[2018-12-17] MEDS: INSULIN ASPART [NOVOLOG] 3 ML PEN SC ×5 (07:50→17:27)
[2018-12-17] MEDS: SEVELAMER CARBONATE 800 MG TABLET PO ×3 (07:50→17:27)
[2018-12-17] MEDS: METOPROLOL 50 MG TAB PO ×2 (09:00→12:59)
[2018-12-17] MEDS: MUPIROCIN 2% 22 GM OINT TOP (09:00)
[2018-12-17] MEDS: MULTIVIT/CA CARB/B CMPLX/FA TAB PO ×2 (09:00→12:58)
[2018-12-17] MEDS: ALTEPLASE (CATHFLO) 2 MG INJ CATHETER (11:10)
[2018-12-17] MEDS: EPOETIN ALFA-EPBX (ESRD) 10,000 UNIT/ML VIAL SC (17:00)
== END 2018-12-17 17:30 | disposition home or self-care (01) | DRG 391 ==
LOC: MS1 12-12 16:42 → E/R 20:23 → MS1 12-11 00:45
PROVIDERS: Internal Medicine
PROC: 0DB68ZX Excision of Stomach, Via Natural or Artificial Opening Endoscopic, Diagnostic (ICD-10-PCS; principal; 2018-12-13 11:00)
PROC: 5A1D70Z Performance of Urinary Filtration, Intermittent, Less than 6 Hours Per Day (ICD-10-PCS; 2018-12-13 11:00)
PROC: 5A1D70Z Performance of Urinary Filtration, Intermittent, Less than 6 Hours Per Day (ICD-10-PCS; 2018-12-13 11:00)
DX: K29.00 Acute gastritis without bleeding (principal); N18.6 End stage renal disease; R65.10 Systemic inflammatory response syndrome (SIRS) of non-infectious origin without acute organ dysfunction; I12.0 Hypertensive chronic kidney disease with stage 5 chronic kidney disease or end stage renal disease; E11.22 Type 2 diabetes mellitus with diabetic chronic kidney disease; K21.9 Gastro-esophageal reflux disease without esophagitis; K29.80 Duodenitis without bleeding; D64.9 Anemia, unspecified; D17.79 Benign lipomatous neoplasm of other sites; E11.65 Type 2 diabetes mellitus with hyperglycemia; E87.6 Hypokalemia; K59.00 Constipation, unspecified; Z99.2 Dependence on renal dialysis; Z79.4 Long term (current) use of insulin
CPT/HCPCS: 36415; 71045; 74176; 74181; 76705; 80048; 80053; 82947; 82962; 83036; 83690; 84484; 84703; 85025; 87081; 87340; 88305; 88312; 90935; 93005; 96374; 96375; 99285-25

== ENCOUNTER 2018-12-28 10:58 | Day surgery (SDC) | payer BC ==
[2018-12-28 12:50] LABS: ADD MAN DIFF? NO
[2018-12-28] MEDS: DEXTROSE 5%-0.45% NACL 1,000 ML IV (12:50)
[2018-12-28 12:59] LABS: BASOPHIL # 0.1 10^3/ul (0.0-0.1); EOSINOPHILS # 0.3 10^3/ul (0.0-0.5); EOSINOPHILS % 3.5 % (0.0-7.0); HEMATOCRIT 32.6 % (37.0-47.0); HEMOGLOBIN 10.2 g/dl (12.0-16.0); LYMPHOCYTES # 1.1 10^3/ul (0.8-2.9); LYMPHOCYTES % 13.5 % (15.0-51.0); MEAN CORPUSCULAR HEMOGLOBIN 29.1 pg (29.0-33.0); MEAN CORPUSCULAR HGB CONC 31.3 g/dl (32.0-37.0); MEAN CORPUSCULAR VOLUME 93.1 fl (82.0-101.0); MEAN PLATELET VOLUME 10.8 fl (7.4-10.4); MONOCYTE # 0.6 10^3/ul (0.3-0.9); MONOCYTES % 7.4 % (0.0-11.0); NEUTROPHIL # 5.9 10^3/ul (1.6-7.5); NEUTROPHILS % 74.2 % (39.0-77.0); PLATELET COUNT 447 10^3/UL (140-415); RED CELL DISTRIBUTION WIDTH 17.4 % (11.5-14.5)
[2018-12-28] MEDS ORDERED: DEXTROSE 50% 50 ML SYRINGE (13:00)
[2018-12-28] MEDS: DEXTROSE 50% 50 ML SYRINGE IV (13:07)
[2018-12-28 13:12] LABS: ALANINE AMINOTRANSFERASE 13 IU/L (13-69); ALBUMIN 4.5 g/dl (3.3-4.9); ALBUMIN/GLOBULIN RATIO 1.32; ALKALINE PHOSPHATASE 87 IU/L (42-121); ANION GAP 11 (5-13); ASPARTATE AMINO TRANSFERASE 24 IU/L (15-46); BILIRUBIN,INDIRECT 0.2 mg/dl (0-1.1); BILIRUBIN,TOTAL 0.2 mg/dl (0.2-1.3); CALCIUM 9.9 mg/dl (8.4-10.2); CARBON DIOXIDE 32 mmol/L (21-31); Estimated GFR 10 mL/min (>60); GLUCOSE 56 mg/dl (70-220); TOTAL PROTEIN 7.9 g/dl (6.1-8.1)
[2018-12-28 13:14] LABS: INR 0.93; PROTIME 12.6 Sec (11.9-14.9)
[2018-12-28 13:15] LABS: PARTIAL THROMBOPLASTIN TIME 29.8 Sec (23.0-35.0)
[2018-12-28 13:16] LABS: CREATININE 4.81 mg/dl (0.44-1.00)
[2018-12-28 13:18] LABS: SODIUM 137 mmol/L (135-144)
[2018-12-28 13:19] LABS: BLOOD UREA NITROGEN 20 mg/dl (7-20); CHLORIDE 94 mmol/L (97-110); POTASSIUM 3.4 mmol/L (3.5-5.1)
[2018-12-28] MEDS ORDERED: GELATIN SIZE 100 SPONGE (13:21)
[2018-12-28] MEDS ORDERED: THROMBIN (BOVINE) 5,000 UNIT VIAL TP (13:21)
[2018-12-28] MEDS ORDERED: PROPOFOL 100 ML (13:40)
[2018-12-28] MEDS ORDERED: ROCURONIUM 50 MG INJ (13:54)
[2018-12-28] MEDS ORDERED: CEFAZOLIN 1 GM INJ (13:54)
[2018-12-28] MEDS ORDERED: DEXAMETHASONE 4 MG/ML 5 ML INJ (13:54)
[2018-12-28] MEDS ORDERED: LIDOCAINE 2% (SDV) 5 ML INJ (13:54)
[2018-12-28] MEDS ORDERED: ONDANSETRON 4 MG INJ ×2 (13:54→15:42)
[2018-12-28] MEDS ORDERED: FENTAnyl 50 MCG/ML VIAL (14:07)
[2018-12-28] MEDS: LIDOCAINE 1% (MPF) 30 ML INJ (14:08)
[2018-12-28] MEDS: BUPIVACAINE 0.5% (SDV) 30 ML INJ (14:08)
[2018-12-28] MEDS: HEPARIN 1000 UNITS/ML 10 ML INJ (14:19)
[2018-12-28] MEDS ORDERED: HEPARIN 1000 UNITS/ML 10 ML INJ (14:32)
[2018-12-28] MEDS ORDERED: GLYCOPYRROLATE 0.4 MG INJ (15:34)
[2018-12-28] MEDS ORDERED: NEOSTIGMINE 3 MG/3 ML SYRINGE (15:34)
[2018-12-28] MEDS: hydrALAzine 20 MG INJ IV (15:56)
[2018-12-28] MEDS ORDERED: OXYCODONE/ACETAMINOPHEN (5/325) TAB PO ×2 (16:00)
[2018-12-28] MEDS ORDERED: EPHEDrine SULFATE 50 MG/5 ML SYG IV (16:00)
[2018-12-28] MEDS ORDERED: FENTAnyl 50 MCG/ML VIAL IV ×3 (16:00)
[2018-12-28] MEDS ORDERED: KETOROLAC 30 MG INJ IV (16:00)
[2018-12-28] MEDS ORDERED: ACETAMINOPHEN 325 MG TAB PO (16:00)
[2018-12-28] MEDS ORDERED: MIDAZOLAM 1 MG/ML 2 ML INJ IV (16:00)
[2018-12-28] MEDS ORDERED: ONDANSETRON 4 MG INJ IV (16:00)
[2018-12-28] MEDS ORDERED: morphine 2 MG INJ IV (16:00)
[2018-12-28] MEDS ORDERED: HYDROCODONE/APAP (5/325) TAB PO (16:00)
[2018-12-28] MEDS ORDERED: METOCLOPRAMIDE 10 MG INJ IV (16:00)
[2018-12-28] MEDS ORDERED: LABETALOL HCL 20MG INJ IV (16:00)
[2018-12-28] MEDS ORDERED: HYDROmorphONE 1 MG/5 ML IV SYRINGE IV ×3 (16:00)
[2018-12-28] MEDS ORDERED: MEPERIDINE 25 MG INJ IV (16:00)
[2018-12-28] MEDS ORDERED: ALBUTEROL 0.083% (NEB) 2.5 MG/3 ML AMP HHN (16:00)
[2018-12-28] MEDS ORDERED: DIPHENHYDRAMINE 50 MG INJ IV (16:00)
[2018-12-28] MEDS: ONDANSETRON 4 MG INJ IV (16:02)
== END 2018-12-28 17:30 | disposition home or self-care (01) ==
LOC: SDS 10:58
DX: I12.0 Hypertensive chronic kidney disease with stage 5 chronic kidney disease or end stage renal disease (principal); N18.6 End stage renal disease; E11.9 Type 2 diabetes mellitus without complications
CPT/HCPCS: 36821; 71045; 80053; 82962; 84702; 85025; 85610; 85730; 93005